=== PATIENT | female | born 1940 | race Caucasian/White ===

== ENCOUNTER 2018-03-14 13:08 | Emergency (ER) | payer MEDICARE, BC ==
[2018-03-14] MEDS ORDERED: Aspirin 81 MG Tab.Chew PO ONE (13:16)
[2018-03-14] MEDS ORDERED: Ondansetron 4 MG/2 ML SDV IVPUSH ONE (13:21)
[2018-03-14] MEDS ORDERED: Ketorolac 30 MG/ML SDV IVPUSH ONE (13:21)
[2018-03-14] MEDS ORDERED: Sodium Chloride 0.9% 1,000 ML IV ONE (13:21)
--- NOTE | 2018-03-14 13:57 | EDM.PDOC ---
ED HPI GENERAL MEDICAL PROBLEM - General Chief Complaint: Cardiovascular Problem Stated Complaint: COLD AND BODYACHE Time Seen by Provider: 03/14/18 13:15 Source of Information: Reports: Patient History Limitations: Reports: No Limitations - History of Present Illness INITIAL COMMENTS - FREE TEXT/NARRATIVE: HISTORY AND PHYSICAL: History of present illness: Patient is a 77-year-old female who presents to the emergency room with complaints of nausea, vomiting, diarrhea, dizziness, weakness and body aches. She states that her significant other recently had the same symptoms and was seen at [facility]. His symptoms had started on Thursday and did take till Thursday to resolve. He had the flu. She states that they drove from [place] to [place] yesterday to watch her grandsons [employer] car race. She started to feel unwell yesterday which continued into the morning. She states she believes she has the flu and wanted to make sure that she was okay. She does have a past medical history of atrial fibrillation, takes Eliquist daily. She has noted some palpitations intermittently over the past 24 hours. Currently no chest pain, shortness of breath, cough or palpitations. She denies any fevers, chills, dysuria. No blood in her stools or emesis. Review of systems: As per history of present illness and below otherwise all systems reviewed and negative. Past medical history: As per history of present illness and as reviewed below otherwise noncontributory. Surgical history: As per history of present illness and as reviewed below otherwise noncontributory. Social history: No reported history of drug or alcohol abuse. Family history: As per history of present illness and as reviewed below otherwise noncontributory. Physical exam: General: Well-developed and well-nourished 77-year-old female. Alert and oriented. Nontoxic appearing and in no acute distress. HEENT: Atraumatic, normocephalic, pupils equal and reactive bilaterally, negative for conjunctival pallor or scleral icterus, mucous membranes tachy and dry, throat clear, neck supple, nontender, trachea midline. No drooling or trismus noted. No meningeal signs Lungs: Clear to auscultation, breath sounds equal bilaterally, chest nontender. Heart: S1S2, regular rate and rhythm without overt murmur Abdomen: Soft, nondistended, nontender. Negative for masses or hepatosplenomegaly. Negative for costovertebral tenderness. Pelvis: Stable nontender. Genitourinary: Deferred. Rectal: Deferred. Skin: Intact, warm, dry. No lesions or rashes noted. Extremities: Atraumatic, negative for cords or calf pain. Neurovascular unremarkable. Neuro: Awake, alert, oriented. Cranial nerves II through XII unremarkable. Cerebellum unremarkable. Motor and sensory unremarkable throughout. Exam nonfocal. Notes: EKG shows a normal sinus rhythm of 97. Vital signs are stable. I do note that the patient intermittently goes in and out of atrial fibrillation with a maximum rate of 127. Patient states her nausea is relieved IV Zofran. 1450: I was notified that the troponin is elevated at 0.070. I did share this with the patient. I did re-ask if she has had any chest pain, shortness of breath or any chest discomfort. She denies any symptoms currently. She states that she still has some dizziness and generalized feeling of being unwell. Repeat EKG ordered. Patient would like to stay at our facility if able. I did inform her that this is unlikely due to us not having etiology in house. Her basin finish operator tig welder is Dr Caruso. I informed the patient that I will call to update him on her status and check for availability for transfer to [facility]. Patient states that she would rather go to [facility] if she is unable to stay in [place]. 1455: [facility] was called, as the patient's basin finish operator tig welder Dr Caruso, is established there. Dr Tello is on-call for this group. I did speak with him about this case. Dr Tello was disgruntled about my attempt to inform him of this patient (in his cardiology group) and declined to accept this patient. 1500: Dr Koehler, [facility], was informed of this patient. He is agreeable to accepting this patient for observation. Patient was made aware of this. She'll go by EMS transfer. Still denies any chest pain or shortness of breath at this time. Vital signs are stable. Diagnostics: CBC, CMP, UA, troponin, EKG, one view chest, repeat EKG Therapeutics: IV fluid, Zofran Impression: Elevated Troponin Gastroenteritis Plan: Transfer to [facility] via EMS Definitive disposition and diagnosis as appropriate pending reevaluation and review of above. - Related Data Allergies Allergy/AdvReac Type Severity Reaction Status Date / Time Influenza Virus Vaccines Allergy Other Verified 03/14/18 14:18 lisinopril Allergy Cough Verified 03/14/18 13:15 Home Meds: Home Meds Apixaban [Eliquis] 5 mg PO DAILY 03/14/18 [History] Calcium Carbonate/Vitamin D3 [Calcium 600 + Vit D Tablet] 600 mg PO DAILY [History] Denosumab [Prolia] 1 ml IM 03/14/18 [History] Fish Oil/[place]-3 Fatty Acids [Fish Oil] 1,200 mg PO DAILY 03/14/18 [History] LORazepam 0.5 mg PO DAILY 03/14/18 [History] Losartan [Cozaar] 10 mg PO DAILY 03/14/18 [History] Metoprolol Succinate [Toprol XL] 25 mg PO DAILY 03/14/18 [History] Propafenone HCl 300 mg PO BID 03/14/18 [History] amLODIPine [Norvasc] 2.5 mg PO DAILY 03/14/18 [History] Past Medical History HEENT History: Reports: Impaired Vision, Other (See Below) Other HEENT History: blind in left eye Cardiovascular History: Reports: Afib, Hypertension Gastrointestinal History: Reports: Diverticulosis, Other (See Below) INSPECTOR BOILER History: Reports: Other (See Below) Other INSPECTOR BOILER History: cyst removed from ovary - Infectious Disease History Infectious Disease History: Reports: Chicken Pox, Measles, Mumps - Past Surgical History HEENT Surgical History: Reports: None Cardiovascular Surgical History: Reports: None GI Surgical History: Reports: Cholecystectomy Social & Family History - Family History Family Medical History: Noncontributory - Tobacco Use Smoking Status *Q: Never Smoker Second Hand Smoke Exposure: No - Caffeine Use Caffeine Use: Reports: None - Recreational Drug Use Recreational Drug Use: No ED ROS GENERAL - Review of Systems Review Of Systems: ROS reveals no pertinent complaints other than HPI. ED EXAM, GENERAL - Physical Exam Exam: See Below (See dictation) EKG INTERPRETATION EKG Date: 03/14/18 Time: 13:09 Rhythm: NSR Rate (Beats/Min): 97 Comparison: NA - No Prior EKG EKG Interpretation Comments: History of A.Fib Course - Vital Signs Last Recorded V/S: Last Vital Signs Temp 97.8 F 03/14/18 13:15 Pulse 95 03/14/18 13:15 Resp 18 03/14/18 13:15 BP 117/67 03/14/18 13:15 Pulse Ox 96 03/14/18 13:15 - Orders/Labs/Meds Orders: Active Orders 24 hr Category Date Time Status EKG 12 Lead [EKG Documentation Completion] [RC] STAT Care 03/14/18 14:56 Ordered EKG Documentation Completion [RC] STAT Care 03/14/18 13:16 Active Chest 1V Frontal [CR] Stat Exams 03/14/18 13:16 Taken Labs: Laboratory Tests 03/14/18 03/14/18 03/14/18 Range/Units 13:45 13:45 13:45 WBC 9.92 (4.0-11.0) K/uL RBC 4.35 (4.30-5.90) M/uL Hgb 13.3 (12.0-16.0) g/dL Hct 39.5 (36.0-46.0) % MCV 90.8 (80.0-98.0) fL MCH 30.6 (27.0-32.0) pg MCHC 33.7 (31.0-37.0) g/dL RDW Std Deviation 42.9 (28.0-62.0) fl RDW Coeff of Niecy 13 (11.0-15.0) % Plt Count 204 (150-400) K/uL MPV 9.50 (7.40-12.00) fL Neut % (Auto) 91.8 H (48.0-80.0) % Lymph % (Auto) 4.9 L (16.0-40.0) % [place] % (Auto) 3.0 (0.0-15.0) % Eos % (Auto) 0.2 (0.0-7.0) % Baso % (Auto) 0.1 (0.0-1.5) % Neut # (Auto) 9.1 H (1.4-5.7) K/uL Lymph # (Auto) 0.5 L (0.6-2.4) K/uL [place] # (Auto) 0.3 (0.0-0.8) K/uL Eos # (Auto) 0.0 (0.0-0.7) K/uL Baso # (Auto) 0.0 (0.0-0.1) K/uL Nucleated RBC % 0.0 /100WBC Nucleated RBCs # 0 K/uL Sodium 141 (136-145) mmol/L Potassium 3.7 (3.5-5.1) mmol/L Chloride 105 (98-107) mmol/L Carbon Dioxide 28.2 (21.0-32.0) mmol/L BUN 20 H (7.0-18.0) mg/dL Creatinine 0.9 (0.6-1.0) mg/dL Est Cr Clr Drug Dosing 37.00 mL/min Estimated GFR (MDRD) > 60.0 ml/min Glucose 126 H (74-106) mg/dL Calcium 9.0 (8.5-10.1) mg/dL Total Bilirubin 1.0 (0.2-1.0) mg/dL AST 19 (15-37) IU/L ALT 26 (14-63) IU/L Alkaline Phosphatase 61 (46-116) U/L Troponin I 0.070 H* (0.000-0.056) ng/mL Total Protein 7.1 (6.4-8.2) g/dL Albumin 4.0 (3.4-5.0) g/dL Globulin 3.1 (2.0-3.5) g/dL Albumin/Globulin Ratio 1.3 (1.3-2.8) H. pylori IgG Antibody NEGATIVE (NEG) Meds: Medications Discontinued Medications Generic Name Dose Route Start Last Admin Trade Name Freq PRN Reason Stop Dose Admin Aspirin 324 mg 03/14/18 13:16 03/14/18 14:27 Aspirin PO 03/14/18 13:17 Not Given ONETIME ONE Sodium Chloride 1,000 mls @ 999 mls/hr 03/14/18 13:21 03/14/18 14:00 Normal Saline IV 03/14/18 14:21 999 mls/hr STAT ONE Administration Ketorolac Tromethamine 30 mg 03/14/18 13:21 03/14/18 14:25 Toradol IVPUSH 03/14/18 13:22 30 mg ONETIME ONE Administration Ondansetron HCl 4 mg 03/14/18 13:21 03/14/18 14:28 Zofran IVPUSH 03/14/18 13:22 4 mg ONETIME ONE Administration Departure - Departure Time of Disposition: 15:37 Disposition: Refer to Observation Clinical Impression: Elevated troponin, Gastroenteritis Referrals: PCP,None [Primary Care Provider] - Forms: ED Department Discharge Additional Instructions: The following information is given to patients seen in the emergency department who are being discharged to home. This information is to outline your options for follow-up care. We provide all patients seen in our emergency department with a follow-up referral. The need for follow-up, as well as the timing and circumstances, are variable depending upon the specifics of your emergency department visit. If you don't have a primary care physician on staff, we will provide you with a referral. We always advise you to contact your personal physician following an emergency department visit to inform them of the circumstance of the visit and for follow-up with them and/or the need for any referrals to a consulting specialist. The emergency department will also refer you to a specialist when appropriate. This referral assures that you have the opportunity for follow-up care with a specialist. All of these measure are taken in an effort to provide you with optimal care, which includes your follow-up. Under all circumstances we always encourage you to contact your private physician who remains a resource for coordinating your care. When calling for follow-up care, please make the office aware that this follow-up is from your recent emergency room visit. If for any reason you are refused follow-up, please contact the [facility] Emergency Department at and asked to speak to the emergency department charge nurse. [facility] [address] [place] [id number] 1. Small frequent meals and sips of fluids throughout the day. 2. Tylenol and/or ibuprofen as needed for pain management. Take the Zofran as directed. 3. Follow-up with your primary caregiver in the next 1-2 days. Return to the ED as needed and as discussed. - My Orders Last 24 Hours: My Active Orders 03/14/18 13:16 EKG Documentation Completion [RC] STAT Chest 1V Frontal [CR] Stat 03/14/18 14:56 EKG 12 Lead [EKG Documentation Completion] [RC] STAT - Assessment/Plan Last 24 Hours: My Active Orders 03/14/18 13:16 EKG Documentation Completion [RC] STAT Chest 1V Frontal [CR] Stat 03/14/18 14:56 EKG 12 Lead [EKG Documentation Completion] [RC] STAT
[2018-03-14 14:25] LABS: CHLORIDE,CL 105 mmol/L (98-107); SODIUM,NA 141 mmol/L (136-145)
[2018-03-14] MEDS ORDERED: Sodium Chloride 0.9% 1,000 ML IV SCH (16:00)
--- NOTE | 2018-03-16 10:03 | CR ---
EXAM DATE: 03/14/18 PATIENT'S AGE: 77 Patient: IAN SINGH Facility: [place], [place] Site . Site : [id number] Study: XRay Chest [id number] 2:23:22 PM Ordering Physician: Doctor Sheffield Final Report: INDICATION: Chest pain. TECHNIQUE: AP portable upright chest. FINDINGS: Clear lungs. Normal heart size and pulmonary vascularity. Focal eventration or perhaps a small hernia of the left hemidiaphragm. A lateral chest x-ray may be helpful for further characterization. The included skeleton is unremarkable. IMPRESSION: No acute cardiopulmonary process identified. Dictated by Yury Espitia MD @ Mar 14 2018 2:38PM (Electronic Signature) Report Signed by Proxy. MABEL
== END 2018-03-14 16:10 ==
LOC: MW.ED 13:08
DX: K52.9 Noninfective gastroenteritis and colitis, unspecified (principal); R79.89 Other specified abnormal findings of blood chemistry; I10 Essential (primary) hypertension; I48.91 Unspecified atrial fibrillation; Z88.7 Allergy status to serum and vaccine; Z79.899 Other long term (current) drug therapy; Z88.8 Allergy status to other drugs, medicaments and biological substances
CPT/HCPCS: 36415; 71045; 80053; 84484; 85025; 86677; 96361; 96374; 96375; 99285; J1885; J2405; J7040; 99284